=== PATIENT | male | born 1980 | race Caucasian/White ===

== ENCOUNTER 2016-08-28 10:31 | Emergency (ER) | payer MEDICAID ==
[~2016-08-28] VITALS: Ht 162.6 cm; Wt 89.0 kg
[2016-08-28 10:35] VITALS: Ht 162.6 cm; Wt 89.0 kg
[2016-08-28] MEDS ORDERED: POLYETHYLENE GLYCOL 17 GM PACKET PO ONE (11:00)
--- NOTE | 2016-08-28 11:01 | ERD ---
ER Documentation Chief Complaint Date/Time DATE: 08/28/16 TIME: 11:00 Chief Complaint ap x 5 days HPI 36-year-old male comes in with constipation, nausea and epigastric abdominal pain for the past 5 days. Patient describes pain that starts in the epigastrium and radiates downward, he reports one episode of nonbloody nonbilious emesis and continuing nausea. He reports positive flatulence however his last bowel movement was 5 days ago. He denies fevers, chills. No blood in bowel movements. ROS All systems reviewed and are negative except as per history of present illness. Medications Home Meds Active Scripts Ranitidine Hcl* (Zantac*) 150 Mg Tablet, 150 MG PO BID Y for EPIGASTRIC PAIN, # 60 TAB Prov:RAMANDEEP DOBSON PA-C 08/28/16 Omeprazole* (Omeprazole*) 20 Mg Capsule.dr, 20 MG PO BID, #60 Prov:RAMANDEEP DOBSON PA-C 08/28/16 PMhx/Soc Hx Alcohol Use: No Hx Substance Use: No Hx Tobacco Use: No Smoking Status: Never smoker Physical Exam Vitals Vital Signs Date Time Temp Pulse Resp B/P Pulse Ox O2 Delivery O2 Flow Rate FiO2 08/28/16 10:35 98.0 89 18 140/89 99 Physical Exam General: Well-developed, well-nourished. The patient appears in no acute distress. HEENT: Head is normocephalic, atraumatic. No scleral icterus. Neck: Supple. Nontender. Lungs: Clear to auscultation. Normal air movement. Heart: Regular rate and rhythm. S1 and S2 are normal. No murmurs, gallops, or rubs. Abdomen: Soft, tender in the epigastrium, mildly distended, no rebound pain, negative Anderson sign, no McBurney's tenderness nondistended. Bowel sounds are normoactive. Extremities: No clubbing or cyanosis. Normal pulses. Moving extremities x 4. No weakness. Neurologic: Alert and oriented 3. No focal deficits. Skin: Normal turgor. No rash or lesions. Result Diagram: 08/28/16 1141 08/28/16 1141 Results 24 hrs Laboratory Tests Test 08/28/16 11:08 08/28/16 11:41 Urine Color LT. YELLOW Urine Clarity CLEAR Urine pH 8.5 Urine Specific [place] 1.015 Urine Ketones NEGATIVE Urine Nitrite NEGATIVE Urine Bilirubin NEGATIVE Urine Urobilinogen 0.2 E.U./dL Urine Leukocyte Esterase NEGATIVE Urine Microscopic RBC 0-2/HPF Urine Microscopic WBC NONE SEEN/HPF Urine Hemoglobin NEGATIVE Urine Glucose NEGATIVE% Urine Total Protein TRACE White Blood Count 7.010^3/ul Red Blood Count 6.0210^6/ul Hemoglobin 16.6g/dl Hematocrit 50.6% Mean Corpuscular Volume 84.1fl Mean Corpuscular Hemoglobin 27.6pg Mean Corpuscular Hemoglobin Concent 32.8g/dl Red Cell Distribution Width 12.9% Platelet Count 29912^3/UL Mean Platelet Volume 9.0fl Neutrophils % 54.5% Lymphocytes % 34.2% Monocytes % 8.9% Eosinophils % 1.6% Basophils % 0.4% Nucleated Red Blood Cells % 0.0/100WBC Neutrophils # 3.810^3/ul Lymphocytes # 2.410^3/ul Monocytes # 0.610^3/ul Eosinophils # 0.110^3/ul Basophils # 0.010^3/ul Nucleated Red Blood Cells # 0.010^3/ul Sodium Level 141mmol/L Potassium Level 4.2mmol/L Chloride Level 106mmol/L Carbon Dioxide Level 27mmol/L Anion Gap 12 Blood Urea Nitrogen 5mg/dl Creatinine 0.77mg/dl Glucose Level 107mg/dl Calcium Level 9.5mg/dl Total Bilirubin 0.3mg/dl Direct Bilirubin 0.00mg/dl Indirect Bilirubin 0.3mg/dl Aspartate Amino Transf (AST/SGOT) 35IU/L Alanine Aminotransferase (ALT/SGPT) 73IU/L Alkaline Phosphatase 82IU/L Total Protein 8.1g/dl Albumin 4.9g/dl Globulin 3.20g/dl Albumin/Globulin Ratio 1.53 Lipase 31U/L Current Medications Medications (Trade) Dose Ordered Sig/Hardeep Route PRN Reason Start Time Stop Time Status Last Admin Dose Admin Polyethylene Glycol (Miralax) 17 gm ONCE ONCE PO 08/28/16 11:00 08/28/16 11:01 DC 08/28/16 11:29 Miscellaneous Medication (Gi Cocktail (2)) 40 ml ONCE ONCE PO 08/28/16 13:30 08/28/16 13:31 DC 08/28/16 13:20 Patient: [address] : 1980 Age: 36 Sex: M MR #: [id number] DOS: 08/28/16 0000 Ordering MD: SYED COLLAZO DO Location: [facility] Room/Bed: PROCEDURE: CT Abdomen and Pelvis without contrast. CLINICAL INDICATION: Epigastric pain TECHNIQUE: CT of the abdomen and pelvis was performed on a multi-detector scanner without IV contrast. Coronal and sagittal images were reformatted from the axial data set. One or more of the following dose reduction techniques were used: automated exposure control, adjustment of the mA and/or kV according to patient size, use of iterative reconstruction technique. CTDI = 18.38 mGy. DLP = 1147.49 mGy-cm. COMPARISON: None. FINDINGS: CT abdomen: The lung bases are clear. The heart size is normal, without pericardial effusion. The liver is fatty infiltrated, without evidence of focal mass. Gallbladder, biliary tree, pancreas, spleen, adrenal glands and kidneys are unremarkable. No urolithiasis or obstructive uropathy is identified. The stomach is grossly unremarkable. The aorta is of normal caliber. There is no retroperitoneal lymphadenopathy. The dora hepatis region is clear. CT pelvis: No bowel obstruction, free intraperitoneal air or abscess is identified. The appendix is well visualized and normal. There is no diverticulosis, diverticulitis or colitis. Scattered calcified mesenteric lymph nodes are seen , presumably chronic sequela of prior granulomatous disease. Urinary bladder is grossly unremarkable. No pelvic mass, free fluid or lymphadenopathy is identified. The surrounding osseous structures are remarkable for degenerative spondylosis of the spine. No osteolytic or osteoblastic lesion is detected. IMPRESSION: 1. Hepatic steatosis is noted. 2. No mass, lymphadenopathy, or focal acute inflammatory process is identified. RPTAT: PP .Sharad Knight MD, MD Date Time Electronically viewed and signed by .Sharad Knight MD, on 08/28/2016 11: 42 .R/ CC: SYED COLLAZO DO Procedures/MDM ED course: Patient was given MiraLAX to start, blood and urine were obtained. Patient was given GI cocktail as well as emergency department he states that the pain did improve from this. MDM: 36-year-old male comes in with constipation, epigastric abdominal pain. Patient is a likely from gastritis versus GERD. CT of abdomen pelvis incidentally shows hepatic steatosis, there is no evidence of acute hepatobiliary process, pancreatitis, acute cholangitis, choledocholithiasis. A CT was also done due to patient's history of constipation, there is no evidence of bowel obstruction, abdominal mass. 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 No signs of upper GI bleed, acute surgical abdominal process, patient stable for outpatient management. Departure Diagnosis: Primary Impression: Abdominal pain Condition: Good RAMANDEEP DOBSON PA-C Aug 28, 2016 11:01
[2016-08-28 11:42] LABS: ADD SCAN DIFF NO
--- NOTE | 2016-08-28 11:42 | RADRPT ---
PROCEDURE: CT Abdomen and Pelvis without contrast. CLINICAL INDICATION: Epigastric pain TECHNIQUE: CT of the abdomen and pelvis was performed on a multi-detector scanner without IV contr ast. Coronal and sagittal images were reformatted from the axial data set. One or more of the foll owing dose reduction techniques were used: automated exposure control, adjustment of the mA and/or kV according to patient size, use of iterative reconstruction technique. CTDI = 18.38 mGy. DLP = 11 47.49 mGy-cm. COMPARISON: None. FINDINGS: CT abdomen: The lung bases are clear. The heart size is normal, without pericardial effusion. The liver is fat ty infiltrated, without evidence of focal mass. Gallbladder, biliary tree, pancreas, spleen, adrena l glands and kidneys are unremarkable. No urolithiasis or obstructive uropathy is identified. The stomach is grossly unremarkable. The aorta is of normal caliber. There is no retroperitoneal lymphadenopathy. The dora hepatis reg ion is clear. CT pelvis: No bowel obstruction, free intraperitoneal air or abscess is identified. The appendix is well visua lized and normal. There is no diverticulosis, diverticulitis or colitis. Scattered calcified mesen teric lymph nodes are seen, presumably chronic sequela of prior granulomatous disease. Urinary blad kaitlynn is grossly unremarkable. No pelvic mass, free fluid or lymphadenopathy is identified. The surrounding osseous structures are remarkable for degenerative spondylosis of the spine. No ost eolytic or osteoblastic lesion is detected. IMPRESSION: 1. Hepatic steatosis is noted. 2. No mass, lymphadenopathy, or focal acute inflammatory process is identified. RPTAT: PP .Sharad Knight MD, MD Date Time Electronically viewed and signed by .Sharad Knight MD, MD on 08/28/2016 11:42 .R/
[2016-08-28 11:46] LABS: BASOPHILS % 0.4 % (0.0-2.0); EOSINOPHILS # 0.1 10^3/ul (0.0-0.5); EOSINOPHILS % 1.6 % (0.0-7.0); HEMATOCRIT 50.6 % (42.0-52.0); HEMOGLOBIN 16.6 g/dl (14.0-18.0); LYMPHOCYTES # 2.4 10^3/ul (0.8-2.9); LYMPHOCYTES % 34.2 % (15.0-51.0); MEAN CORPUSCULAR HEMOGLOBIN 27.6 pg (29.0-33.0); MEAN CORPUSCULAR HGB CONC 32.8 g/dl (32.0-37.0); MEAN CORPUSCULAR VOLUME 84.1 fl (82.0-101.0); MONOCYTE # 0.6 10^3/ul (0.3-0.9); MONOCYTES % 8.9 % (0.0-11.0); NEUTROPHIL # 3.8 10^3/ul (1.6-7.5); NEUTROPHILS % 54.5 % (39.0-77.0); PLATELET COUNT 441 10^3/UL (140-415); RED BLOOD COUNT 6.02 10^6/ul (4.70-6.10); RED CELL DISTRIBUTION WIDTH 12.9 % (11.5-14.5)
[2016-08-28 12:10] LABS: ALBUMIN 4.9 g/dl (3.3-4.9); ALBUMIN/GLOBULIN RATIO 1.53; BILIRUBIN,INDIRECT 0.3 mg/dl (0-1.1); BILIRUBIN,TOTAL 0.3 mg/dl (0.2-1.3); CALCIUM 9.5 mg/dl (8.4-10.2); CREATININE 0.77 mg/dl (0.61-1.24); POTASSIUM 4.2 mmol/L (3.5-5.1); TOTAL PROTEIN 8.1 g/dl (6.1-8.1)
[2016-08-28 12:24] LABS: ADD UMIC YES; UR BILIRUBIN (Dip) NEGATIVE (NEGATIVE); UR BLOOD (Dip) NEGATIVE (NEGATIVE); UR CLARITY CLEAR (CLEAR); UR COLOR LT. YELLOW (YELLOW); UR GLUCOSE (Dip) NEGATIVE (NEGATIVE); UR KETONES (Dip) NEGATIVE (NEGATIVE); UR LEUKOCYTE ESTERASE (Dip) NEGATIVE (NEGATIVE); UR NITRITE (Dip) NEGATIVE (NEGATIVE); UR TOTAL PROTEIN (Dip) TRACE (NEGATIVE); UR UROBILINOGEN (Dip) 0.2 E.U./dL (0.1-1.0)
[2016-08-28 12:35] LABS: URINE RBCS 0-2 /HPF (0)
[2016-08-28] MEDS ORDERED: LIDOCAINE/MYLANTA 40 ML BTL PO ONE (13:30)
[2016-08-28] MEDS ORDERED: RANI150T9 PO (13:57)
[2016-08-28] MEDS ORDERED: OMEP20CA16 PO (13:57)
== END 2016-08-28 14:04 | disposition home or self-care (01) ==
LOC: FTE 10:31
DX: R10.13 Epigastric pain (principal)
CPT/HCPCS: 74176; 80053; 81001; 83690; 85025; Z7610; 36415

== ENCOUNTER 2016-08-29 19:14 | Emergency (ER) | payer MEDICAID ==
[~2016-08-29] VITALS: Ht 167.6 cm; Wt 85.5 kg
[~2016-08-29 19:14] MED LIST: OMEP20CA16 PO; RANI150T9 PO
[2016-08-29 19:18] VITALS: Ht 167.6 cm; Wt 85.5 kg
[2016-08-29] MEDS ORDERED: LIDOCAINE/MYLANTA 40 ML BTL PO ONE (20:30)
--- NOTE | 2016-08-29 22:40 | ERD ---
ER Documentation Chief Complaint Date/Time DATE: 08/29/16 TIME: 22:35 Chief Complaint upper abd pain x 6 days HPI This patient is a 36-year-old male presenting to the emergency department for midepigastric pain ongoing intermittently for the past 6 days. The patient was seen here yesterday and had a full abdominal workup including labs and CT abdomen which were unremarkable for any acute findings and then he was discharged with prescriptions for omeprazole and ranitidine. The patient states he took this medication this morning and they did not relief of symptoms. The patient's symptoms are relieved well with GI cocktail in the department yesterday. He is requesting this medication again. The patient does have history of poor diet. Symptoms are currently moderate in severity. No fevers, chills, chest pain, back pain, or other symptoms currently. ROS All systems reviewed and are negative except as per history of present illness. Medications Home Meds Active Scripts Ranitidine Hcl* (Zantac*) 150 Mg Tablet, 150 MG PO BID Y for EPIGASTRIC PAIN, # 60 TAB Prov:RAMANDEEP DOBSON PA-C 08/28/16 Omeprazole* (Omeprazole*) 20 Mg Capsule.dr, 20 MG PO BID, #60 Prov:RAMANDEEP DOBSON PA-C 08/28/16 Allergies Allergies: Coded Allergies: No Known Allergy (Unverified , 08/29/16) PMhx/Soc Medical and Surgical Hx: pt denies Medical Hx, pt denies Surgical Hx Hx Alcohol Use: No Hx Substance Use: No Hx Tobacco Use: No Smoking Status: Never smoker Physical Exam Vitals Vital Signs Date Time Temp Pulse Resp B/P Pulse Ox O2 Delivery O2 Flow Rate FiO2 08/29/16 19:18 98.3 63 20 156/95 98 Physical Exam Const: Nontoxic, well-appearing male. Head: Atraumatic Eyes: Normal Conjunctiva ENT: Normal External Ears, Nose and Mouth. Neck: Full range of motion..~ No meningismus. Resp: Clear to auscultation bilaterally Cardio: Regular rate and rhythm, no murmurs Abd: Mild tenderness of the midepigastric region, no rebound tenderness or guarding, no tenderness of the right lower quadrant, negative Anderson sign, non distended. Normal bowel sounds Skin: No petechiae or rashes Back: No midline or flank tenderness Ext: No cyanosis, or edema Neur: Awake and alert Psych: Normal Mood and Affect Results 24 hrs Current Medications Medications (Trade) Dose Ordered Sig/Hardeep Route PRN Reason Start Time Stop Time Status Last Admin Dose Admin Miscellaneous Medication (Gi Cocktail (2)) 40 ml ONCE ONCE PO 08/29/16 20:30 08/29/16 20:31 DC 08/29/16 20:33 Procedures/MDM 36-year-old male presenting to the emergency department complaining of midepigastric pain. On physical examination the patient does have some tenderness palpation of the midepigastric region. The patient was seen in the department approximately 24 hours ago for the same complaints and had a negative abdominal workup including CT scan. I do not feel that the patient needs any repeat workup at this time because he is requesting GI cocktail which relieved his symptoms well yesterday. I did consider the diagnosis of aortic dissection however the patient does not have any back pain and his symptoms were completely relieved with GI cocktail in the department. He was monitored for a period of time in the department and when he was reexamined his pain was relieved and he was sleeping in the gurney. He was hemodynamically stable prior to discharge.. The patient's blood pressure was slightly elevated at 156/ 95, however this is most likely due to acute pain. Patient's blood pressure was elevated (>120/80) but appears stable without evidence of hypertension emergency or urgency. The patient was counseled about the risks of hypertension and urged to pursue outpatient monitoring and therapy within a week with their primary care physician. EKG: Interpreted by ED physician Rate/Rhythm: Normal sinus rhythm with a rate of 54 bpm. QRS, ST, T-waves: No changes consistent w/ acute ischemia Impression: No evidence of ischemia or arrhythmia Primary diagnosis is epigastric abdominal pain, most likely secondary to GERD. The patient was advised to have close follow-up with his primary care physician. Strict ER return precautions were discussed. I have low suspicion for acute coronary syndrome, aortic dissection, septicemia, pneumothorax, pulmonary embolism, or other emergent conditions. Departure Diagnosis: Primary Impression: Epigastric abdominal pain Condition: Fair Patient Instructions: Gerd (Adult), Epigastric Pain (Uncertain Cause) [facility] Usted se james hecho un examen mdico de control que le indica que no est en earl condicin que requiera tratamiento urgente en el Departamento de Emergencia. Un estudio ms profundo y el tratamiento de viveros condicin pueden esperar sin ningn riesgo hasta que usted sea atendida/o en el consultorio de viveros mdico o earl cl lukas. Es responsabilidad suya arreglar earl man para el seguimiento del mandy. MANEJO DE CONDICIONES NO URGENTES EN EL FUTURO 1) Si usted tiene un mdico de atencin primaria: Usted debera llamar a viveros mdico de atencin primaria antes de venir al departamento de emergencia. Despus de las horas de consultorio, viveros doctor o viveros asociado/a est disponible por telfono. El mdico o enfermero de juan francisco en el servicio telefnico puede asesorarle por jessy medio para atender el problema, o mandy contrario se puede programar earl man. 2) Si usted no tiene un mdico de atencin primaria: Llame al mdico o clnica de referencia que aparece abajo holli las horas de consultorio para hacer earl man para que le vean. CLINICAS: [facility] [phone] [facility] [phone] [facility] [phone] [facility] [facility] [phone] [facility] [place] [id number] [phone] [facility]. [phone] [address] Additional Instructions: No mas mejor en 2-3 mcneill, regresar. Mas peor en 24 horas, regresear rapidamente. Ir a doctor primario in 5-7 mcneill. Usar instrucciones cuando mary ellen medicamento. KINDRA DAVALOS PA-C Aug 29, 2016 22:40
== END 2016-08-29 21:37 | disposition home or self-care (01) ==
LOC: FTE 19:14
DX: R10.13 Epigastric pain (principal)
CPT/HCPCS: 93005; Z7502; Z7610